=== PATIENT | female | born 2000 | race Caucasian/White ===

== ENCOUNTER → 2021-08-17 14:46 | Outpatient (CLI) | payer OTHER, SELFPAY ==
[2021-08-17 16:25] LABS: COVID19 -Nasal RAPID Negative (Negative)
== END ==
PROVIDERS: Visit Provider Obstetrics & Gynecology
DX: Z01.812 Encounter for preprocedural laboratory examination (principal); Z20.822 Contact with and (suspected) exposure to COVID-19
CPT/HCPCS: 87635

== ENCOUNTER 2021-08-24 13:17 | Day surgery (SDC) | payer OTHER, SELFPAY ==
[2021-08-16 08:37] VITALS: BMI 24.3
[2021-08-24 13:39] VITALS: BP 116/86; PULSE 95; RESP 16; TEMP 36.3; O2SAT 99
[2021-08-24 13:42] VITALS: BMI 24.3
[2021-08-24 13:46] LABS: COVID19 -Nasal RAPID Negative (Negative)
[2021-08-24 13:53] LABS: Add Manual Diff / Slide Review NO; Basophils Absolute Auto 0 /uL (0-100); Basophils Percent Auto 0.3 % (0-2); Eosinophils Absolute Auto 0 /uL (0-450); Eosinophils Percent Auto 0.3 % (2-4); Hematocrit 41.2 % (36-46); Hemoglobin 13.8 g/dL (12.0-16.0); Lymphocytes Absolute Auto 2200 /uL (1100-4500); Lymphocytes Percent Auto 27.4 % (25-40); Mean Corpuscular HGB Conc 33.5 % (30-36); Mean Corpuscular Hemoglobin 28.2 PG (26-34); Mean Corpuscular Volume 84.1 fL (80-100); Monocytes Absolute Auto 300 /uL (0-900); Monocytes Percent Auto 3.8 % (3-14); Neutrophils Absolute Auto 5500 /uL (1500-7000); Neutrophils Percent Auto 68.2 % (50-75); Platelet Count 319 X10^3/uL (150-400); Red Cell Distribution Width 13.1 % (11.6-14.8); White Blood Cell Count 8.1 X10^3/uL (4.5-11.0)
[2021-08-24] MEDS: LACTATED RINGERS 1,000 ML 100 ML IV (14:03)
--- NOTE | 2021-08-24 15:14 | PM.PREOP ---
Pre-operative Note COVID-19 COVID-19 status: Negative Result date/Date tested (Pos, Neg/Pending): 08/24/21 Criteria for continued procedure: Non-surgical alternatives not available or appropriate per current SOC Interval Note History & Physical reviewed/Exam performed by Physician: Yes Changes to H&P: No
--- NOTE | 2021-08-24 15:47 | SUR.OPER ---
Lithotomy on padded OR bed, head on pillow, arms secured on padded arm boards at <90 degrees abduction. Legs secured in padded yellow fins stirrups. POSITION APPROVED BY SURGEON AND ANESTHESIA
[2021-08-24] MEDS: BUPIVACAINE 0.5% (PF) 30 ML, EPINEPHrine 0.15 MG INJ (15:50)
[2021-08-24 16:30] VITALS: BP 131/72; PULSE 100; RESP 14; TEMP 36.5; O2SAT 97
[2021-08-24 16:35] VITALS: BP 122/69; PULSE 89; RESP 20; O2SAT 99
--- NOTE | 2021-08-24 16:38 | PM.GYNOP.1 ---
Operative Date/Time/Diagnoses Date of procedure: 08/24/21 Time of procedure: 15:20 Pre-op diagnosis: Chronic pelvic pain Post-op diagnosis: other (Same as above; Minimal pelvic endometriosis; peritoneal adhesion, ascending colon) Procedure & Clinicians Procedure: Procedures Operation Date: 08/24/21 15:00 Actual Procedure Side Surgeon nroma GAGE Laparoscopy w/ fulguration of endometrial implants; Lysis of adhesion (Ascending colon) Deejay Aguila MD Indications: Sandi is a 21 yo G0 LMP uncertain who presents for evaluation/follow-up of pelvic endometriosis.? The patient can has carried the diagnosis of endometriosis for several years but has never undergone laparoscopy for confirmation.? Her menses began at age 13-14 and while relatively regular, were extremely heavy and associated with severe cramping.? She also developed dyspareunia when she became sexually active and oral contraceptives were used t.i.d. x7 days to regulate her cycles.? Followed by insertion of a Mirena IUD at age 13-14 which remained in place for 3 years.? At the same time that the IUD was placed, the patient underwent hysteroscopy and polypectomy while she was living in [place].? That Mirena IUD was replaced after 3 years and subsequently removed in April 2020 by her provider at [facility] in [facility].? Following removal of the IUD the patient was initiated on Orilissa 200 mg BID which she continues to take.? She was also started on clonidine for vasomotor symptoms and night sweats.? The patient has been amenorrheic since starting the Orilessa and therefore her dysmenorrhea has resolved or as her dyspareunia is only slightly improved.? Clonidine is only marginally effective for her vasomotor symptoms and night sweats and no discussion has been had regarding add back therapy and/or the potential for decreased bone density on long-term Orilissa.? The patient's pain is primarily right lower quadrant and there is a constant component with wave-like exacerbations which occur sporadically and seem to be unrelated to any particular activities, diet, or other GI/ symptoms.? In addition the patient has a bandlike sensation of pain on the lower back when these exacerbations occur.? Of note she has similar pain when she used to have severe dysmenorrhea.? Complicating matters is the fact that the patient has longstanding chronic nausea and vomiting which began yet a month or so prior to the initiation of the Orilissa.? She is currently taking Zofran daily with only modest affects.? The patient has not had GI consultation or upper endoscopy but did have a MRI performed in November 2020 at [facility] which was essentially negative.? No records from her online trader in [place], [facility], or [facility] are available for review.? Of note also in her review of systems are a constellation of symptoms which the patient believes is caused by postural orthostatic tachycardia syndrome (POTS).? These symptoms date back to when she was a young teenager and have never been fully evaluated.? She has never seen a recruitment intern and currently does not have a primary care provider to coordinate the specialty referrals necessary to evaluate these other complaints.? Sandi returns today 3 months status post her initial visit and is essentially unchanged insofar as her symptoms.? Her dyspareunia process unchanged and she started having left lower quadrant sharp pains as opposed to occurring only on the right.? Patient is continuing to take the Orilissa but will finished the medication a cuple of months ago without significant benefit but she states her pelvic pain syndrome may be worsening since discontinuation.? She remains amenorrheic on the Narcisa daily. After discussion of all options regarding further evaluation of her pelvic pain syndrome, the patient has opted to proceed with diagnostic laparoscopy with plans for excision/fulguration of endometrial implants of present and possible appendectomy if there is convincing evidence the time of laparoscopy that the appendix may be the source of the patient's chronic RLQ pain.? Accordingly the patient is scheduled for diagnostic laparoscopy with possible excision/fulguration of endometrial implants in the main operating room of [facility] on the morning of 08/18/2021.? She presents today for preoperative evaluation, counseling, and consent. Surgeon: Deejay Aguila Pizzamaker: Mary Ribeiro Anesthesia Type: General Operative Notes Findings: The uterus is small and retroverted. There were no serosal abnormalities noted. The anterior cul-de-sac is free of adhesions or any other abnormality. Both fallopian tubes and ovaries are normal in all respects. In the posterior cul-de-sac there are superficial areas of peritoneal endometriosis near the midline posterior to the cervix with 2 other small superficial implants on the right side of the posterior cul-de-sac. There are numerous submillimeter clear blebs on the peritoneal surfaces in the posterior cul-de-sac. There were no abnormalities in the ovarian fossae. The appendix is normal in appearance and supple with no evidence of inflammation, periappendiceal adhesions, or involvement by endometriosis. There is a single dense adhesion from the proximal ascending colon to the paracoloic gutter on the right side, approximately 6-8 cm distal to the ileocecal junction which was lysed during the course of the surgery but no other abnormalities are noted. The liver edge on the right lobe is normal in appearance. The gallbladder appears normal and is somewhat distended. The underside of the diaphragm on the right side is somewhat hyperemic but there are no lesions seen even on close inspection. The left hemidiaphragm and left lobe of the liver are normal with the underside of the diaphragm on the left also somewhat hyperemic but no lesions on the surface of the diaphragm are noted. The remainder of the pelvis and abdomen are normal to laparoscopic inspection and no other areas of endometriosis are seen anywhere in the abdominal cavity visualized laparoscopically. Closure Type: primary Specimen(s): none Estimated blood loss (mL): 5 Blood products transfused: none Procedure in detail: With the patient under satisfactory general endotracheal anesthesia in the modified dorsal lithotomy position, perineum, vagina, and abdomen were prepped and draped for laparoscopy. A pre-surgical safety time-out was then taken in accordance with [facility] protocols. A bivalve speculum was inserted in the vagina and the cervix visualized. The anterior lip of the cervix was grasped with a single-tooth tenaculum. The endocervical canal was then dilated to 5 mm with Hegar dilators and a Zumi manipulator was placed. The tenaculum was removed from the cervix and the speculum was removed as well. The skin of the umbilicus was then infiltrated with 0.5% Marcaine with epinephrine and a 1 cm vertical umbilical incision was made in the skin of the umbilicus. A Veress needle was then used to insufflate the abdomen with carbon dioxide in once insufflated a 5 mm trocar and sleeve were placed through the incision. Presence of the sleeve in the abdominal cavity was confirmed with the laparoscoped and subsequently 2 additional 5 mm ports were placed in the right and left mid quadrants using a similar technique after infiltration with Marcaine. The patient was placed in steep Trendelenburg and using a 3 puncture technique the pelvis and abdomen were thoroughly visualized and photographically documented. Attention was 1st turned to the adhesion involving the ascending colon. Monopolar cautery and scissors were used to lyse the adhesion and after lysis the ascending colon was completely free and there was no tension on the remnants of the adhesions. Attention was then turned to the pelvis with isolated areas of what appeared to be superficial endometrial implants. All the implants were destroyed with judicious use of monopolar current and at the completion of that process there were no areas of suspected endometriosis remaining. Pelvis and abdomen were thoroughly inspected once again and absent any other abnormalities or evidence of bleeding, the procedure was terminated by thinning of the pneumoperitoneum or the laparoscopic sleeves. The laparoscopic port incisions were then closed with 4-0 Monocryl using inverted interrupted sutures. Skin glue was applied and appropriate dressings were then applied. The patient was awakened from anesthesia and transferred PACU for a period of observation and recovery having tolerated procedure well. Complications: none
[2021-08-24 16:40] VITALS: BP 115/72; PULSE 97; RESP 16; O2SAT 100
[2021-08-24 16:45] VITALS: BP 117/68; PULSE 82; RESP 16; O2SAT 100
[2021-08-24] MEDS: ACETAMINOPHEN 325 MG TABLET 975 MG PO (16:51)
[2021-08-24] MEDS: ONDANSETRON 4 MG/2 ML INJ IV (17:02)
== END 2021-08-24 17:16 | disposition home or self-care (01) ==
PROVIDERS: Referring Provider Obstetrics & Gynecology; Visit Provider Obstetrics & Gynecology
PROC: 0U5B4ZZ Destruction of Endometrium, Percutaneous Endoscopic Approach (ICD-10-PCS; CPT 58662; principal; 2021-08-24 15:00)
DX: N80.3 Endometriosis of pelvic peritoneum (principal); K66.0 Peritoneal adhesions (postprocedural) (postinfection); F17.290 Nicotine dependence, other tobacco product, uncomplicated; Z20.822 Contact with and (suspected) exposure to COVID-19
CPT/HCPCS: 58662; 36415; 81025; 82962; 85025; 87635; C9803; J0171; J1100; J1885; J2250; J2405; J2704; J3010

== ENCOUNTER → 2021-11-02 12:29 | Outpatient (CLI) | payer OTHER, SELFPAY ==
--- NOTE | 2021-11-02 12:30 | DI.CT.S_ITS ---
PROCEDURE: CT ABDOMEN PELVIS W CON INDICATIONS: RLQ pain TECHNIQUE: After the administration of oral and IV contrast, axial sections were acquired from the lung bases to the pubic symphysis. Coronal and sagittal reformats were performed. For radiation dose reduction, the following was used: automated exposure control, adjustment of mA and/or kV according to patient size. COMPARISON: None. FINDINGS: Image quality: Excellent. Lung bases: Unremarkable. Heart: No significant findings. ABDOMEN: Liver: Incidental note is made of focal fatty infiltration adjacent to the falciform ligament, which is not regarded to be pathologic. The liver is normal in size and demonstrates no suspicious lesions. Gallbladder: Unremarkable. Biliary ducts: Unremarkable. Pancreas: Unremarkable. Spleen: Unremarkable. Adrenal Glands: Unremarkable. Kidneys and Ureters: Unremarkable. Stomach and Bowel: In this patient with this given history, scrutiny is given to the appendix. The appendix is normal, as seen on series 2 images 66 through 70. No focal right lower quadrant inflammatory changes are seen. Peritoneum: No abnormal intraperitoneal fluid. No free air. Ventral Wall: No hernia. Abdominal Nodes: No retroperitoneal or mesenteric adenopathy by size criteria. Vessels: Aorta and inferior vena cava are normal in size. PELVIS: Pelvic Organs: The uterus appears normal for age. No adnexal masses are seen. Bladder: Unremarkable. Pelvic Nodes: No enlarged lymph nodes. Miscellaneous: No inguinal hernias are seen. Bones: Unremarkable. IMPRESSION: Normal appendix. A cause of right lower quadrant pain is not identified. Dictated by: Moe Valencia M.D. on 11/02/2021 at 14:59 Approved by: Moe Valencia M.D. on 11/02/2021 at 15:00
== END ==
PROVIDERS: Referring Provider Obstetrics & Gynecology; Visit Provider Obstetrics & Gynecology
DX: R10.31 Right lower quadrant pain (principal); N80.9 Endometriosis, unspecified; G89.29 Other chronic pain; R10.2 Pelvic and perineal pain
CPT/HCPCS: 74177; Q9967